=== PATIENT | male | born 1980 | race Caucasian/White ===

== ENCOUNTER 2021-07-10 20:49 | Emergency (ER) | payer OTHER, SELFPAY ==
--- NOTE | ~2021-07-10 | XR_ITS ---
XR wrist RT 2V DATE: 07/10/2021 21:17 INDICATION: Basketball injury TECHNIQUE: AP and lateral views COMPARISON: None FINDINGS: There is a comminuted intra-articular fracture of the distal radius with minimal dorsal dis placement. There is approximately 22 degrees apex anterior angulation. There is fracture of the ulnar styloid process. Normal alignment of the radiocarpal joint. IMPRESSION: Comminuted intra-articular fracture of the distal radius Fracture of ulnar styloid process Reviewed, dictated and finalized at location A.
[2021-07-10 20:53] VITALS: BP 119/83; PULSE 105; RESP 18; TEMP 37.1; O2SAT 97
--- NOTE | 2021-07-10 21:58 | ED.UPPEXIN ---
HPI - Extremity Injury (Upper) General Chief Complaint: Extremity Injury, Upper Stated Complaint: right arm injury Time Seen by Provider: 07/10/21 21:06 Source: patient Mode of arrival: ambulatory Limitations: no limitations History of Present Illness HPI narrative: Patient is a 41-year-old male complaining of right wrist pain after he fell on outstretched hand trying to reach for a basketball. Patient states that his pain is mild, tolerable and does not want anything for pain. Patient denies any other pain or injury. Related Data Home Medications Medication Instructions Recorded Confirmed No Home Medications 07/10/21 07/10/21 Allergies Allergy/AdvReac Type Severity Reaction Status Date / Time Sulfa (Sulfonamide Allergy Hives Verified 07/10/21 21:00 Antibiotics) Review of Systems Review of Systems: All systems reviewed & are unremarkable except as noted in HPI and below PMFSH Social History Social History Gender identity (if verbalized by the patient): Male Comments Past medical history: None Family history: Noncontributory Social history: Positive for smoker, positive for EtOH use, denies any drug use Exam Const: General: cooperative, healthy appearing, comfortable, no acute distress, well developed, alert and awake; No confusion Orientation/consciousness: oriented to person, oriented to place, oriented to time, patient oriented x3 and No confusion Limitations: no limitations HENMT: Head: normal to inspection, normocephalic and atraumatic Ears: hearing grossly normal bilaterally, TM normal on the right and TM normal on the left General nose exam: Normal external nose present, Normal nares present and No nasal discharge present Face and sinus: normal facial exam Mouth: Yes Normal oral and palatal mucosa present, Yes lip normal, Yes tongue normal and Yes oropharynx normal Throat: posterior oropharynx normal, tonsils normal and uvula midline Eyes: General: appearance normal, both eyes and all related structures Pupils: Equal, round and reactive pupils present EOM: EOMs intact bilaterally Neck: Neck: normal visual inspection, full ROM, no lymphadenopathy and no meningeal signs Chest: Chest palpation & inspection: normal inspection of the chest Resp: Effort & Inspection: normal respiratory effort, able to speak in complete sentences, no respiratory distress and not tachypneic Auscultation: clear to auscultation bilaterally, no crackles, no rales, no rhonchi and no wheezes Cardio: Rate: regular rate Rhythm: regular rhythm GI: Inspection: normal to inspection GI Palp: No abdominal tenderness, Yes Soft to palpation, No Tenderness to palpation present (GI), No Guarding due to palpation present (GI), No Rigid due to palpation and No Rebound tenderness present Auscultation: normal bowel sounds : General: Yes no CVA tenderness Back/Spine/Pelvis: Back: no CVA tenderness Skin: General skin exam: normal color, no rashes or lesions noted, elasticity normal and turgor normal Neuro: General: oriented to person, oriented to place, oriented to time, patient oriented x3, tone normal, moves all extremities, Normal light touch and pain sensation, no meningeal signs, no focal motor deficits, CN's II-XI intact bilaterally and No confusion Cranial nerves: Yes Equal, round and reactive pupils present Speech: No Abnormal speech present Sensory Exam: No Sensory deficit (Neuro) Extrem: General: capillary refill normal Other: Positive for right wrist deformity, swelling. Positive pain on palpation. Decreased range of motion due to pain. Neurovascular is intact Psych: Appearance: grossly normal and well kempt Mental Status: mental status grossly normal Speech and movement: Normal speech and movement present Affect: normal affect Attitude: cooperative Thought process: Normal thought process present Thought content: Yes Normal thought content present Insight: Good insight present (Psych) Judgement: Good judg
[2021-07-10] MEDS: TETANUS,DIPHTHERIA,AC PERTUSSIS ADULT (0.5 ML) BOOSTRIX IM (22:10)
[2021-07-10 23:36] VITALS: BP 119/68; PULSE 81; RESP 18; O2SAT 99
== END 2021-07-10 23:38 | disposition home or self-care (01) ==
PROVIDERS: Emergency Provider Emergency Medicine
DX: S52.501A Unspecified fracture of the lower end of right radius, initial encounter for closed fracture (principal); W01.0XXA Fall on same level from slipping, tripping and stumbling without subsequent striking against object, initial encounter; Z23 Encounter for immunization
CPT/HCPCS: 25605; 73100; 73110; 90471; 90715; 99285; A4565

== ENCOUNTER 2025-02-21 11:16 | Outpatient (CLI) | payer BC, SELFPAY ==
--- NOTE | ~2025-02-21 | US_ITS ---
Limited Abdominal Sonogram: Real-time sonographic imaging of the right upper quadrant was performed. Clinical History: Abnormal LFTs Findings: The liver appears mildly echogenic, with no evidence of mass lesion or bile duct dilatatio n. It measures 18.9 cm in length. Main portal vein demonstrates normal direction of flow. The gallbla dder is well distended, and appears normal with no evidence of gallstone or wall thickening. The comm on bile duct measures 6 mm. The visualized pancreas, aorta, and IVC are unremarkable. Impression: Probable mild fatty infiltration of liver with associated hepatomegaly. Reviewed, dictated and finalized at location M. Impression: Probable mild fatty infiltration of liver with associated hepatomegaly.
--- OUTSIDE RECORDS SUMMARY | 2025-02-21 13:19 | XMS_ITS | Clinical Summary ---
Author Organization [facility] [place] [address] [facility] Address [address] [place] [address] Care Team Providers Care Proofer Prepress Name Role Phone Nat Norris NP Primary Care Provider [phone] Allergies Active Allergy Reactions Criticality Noted Date Comments Penicillin Hives Medium 04/22/2023 Medications No known medications Active Problems Problem Noted Date Diagnosed Date BMI less than 19,adult 04/22/2023 Physical exam, annual 04/22/2023 BMI 20.0-20.9, adult 04/22/2023 Immunizations Immunization Administration Dates Next Due Hep A, Adult 08/04/2002 Influenza, Quadrivalent, Mae l Culture-based MDCK, Preservative Free, Antibiotic Free, Intramuscular 07/10/2022 Influenza, Unspecified 04/22/2023(Deferr ed: Patient Refused),12/18/2021(Deferred: Patient Refused) Tdap 07/10/2021 Family History Medical History Relation Name Comments No Known Problems Father No Known Problems Mother Diabetes Paternal Grandfather Relation Name Status Comments Father Alive Mother Alive Paternal Grandfather Social History Tobacco Use Types Packs/Day Years Used Date Smoking Tobacco: Every Day Cigarettes 1 20 Tobacco Cessation:Ready to Q uit: Not Asked; Counseling Given: Not Answered PHQ-2 Answer Date Recorded PHQ-2 Total Score (If total score is 3 or more points, staff should administer the PHQ-9) 0 04/22/2023 Personal Safety Answer Date Recorded Getting School Help Needed Not on file 01/16 Sex and Gender Information Value Date Recorded Sex Assigned at Not on file 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 Gender Identity Not on file Sexual Orientation Not on file Obstetrics History Last Filed Vital Signs Vital Sign Reading Time Taken Comments Blood Pressure 118/80 04/22/2023 1:30 PM CDT Pulse 87 04/22/2023 1:30 PM CDT Temperature 37.1 C (98.7 F) 04/22/2023 1:30 PM CDT Respiratory Rate - - Oxygen Saturation 97% 04/22/2023 1:30 PM CDT Inhaled Oxygen Concentration - - Weight 71.2 kg (157 lb) 04/22/2023 1:30 PM CDT Height 185.4 cm (6' 1 ) 04/22/2023 1:30 PM CDT Body Mass Index 20.71 04/22/2023 1:30 PM CDT Plan of Treatment Health Maintenance Due Date Last Done Comments Colon Cancer Screening-Colonoscopy 1979 Hepatitis C Screening 1979 Hepatitis B Screening 1997 Pneumococcal vaccine <65 (1 of 2 - PCV) 1998 Depression Screening 04/22/2024 04/22/2023 Regular Well Visit/Exam 18-64 04/22/2024 04/22/2023 Covid-19 Vaccine ( season) 2024 07/24/2022, 10/25/2021, 02/08/2021, Additional history exists Influenza Vaccine (#1) 2024 07/10/2022 DTaP/Tdap/Td Vaccine (2 - Td or Tdap) 07/10/2031 07/10/2021 HPV Vaccines Aged Out No longer eligi ble based on patient's age to complete this topic Insurance [employer] Care Teams Proofer Prepress Relationship Specialty Start Date End Date Nat Norris NP [address] [facility] [address] [place] [address] PCP - General Internal Medicine 04/22/23
--- OUTSIDE RECORDS SUMMARY | 2025-02-21 13:19 | XMS_ITS | Referral Summary ---
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
== END 2025-02-21 11:17 | disposition home or self-care (01) ==
PROVIDERS: Visit Provider Physician Assistant
DX: R74.01 Elevation of levels of liver transaminase levels (principal)
CPT/HCPCS: 76705

== ENCOUNTER 2025-06-21 12:31 | Outpatient (CLI) | payer OTHER, SELFPAY ==
--- NOTE | ~2025-06-21 | XR_ITS ---
EXAMINATION: XR UGIAC w small bowel DATE: 06/21/2025 14:28 INDICATION: Chronic nausea. Recent endoscopy/colonoscopy TECHNIQUE: The patient drank thick barium, gas-producing crystals, and thin barium. Conventional supi ne abdomen radiographs and fluoroscopic spot radiographs of the esophagus, stomach, and proximal smal l bowel were obtained. Additional overhead radiographs were obtained during the transit through the s mall bowel. Spot fluoroscopic images of the small bowel were obtained upon contrast reaching the cec um. A total of 367 fluoroscopic images and 5 overhead radiographs were recorded. Fluoroscopy exposure time was 2.4 minutes.. Total DAP was 668 Gycm^2. COMPARISON: None. FINDINGS: The esophagus is normal without mass or stricture. Esophageal motility is normal. There is no hiatal hernia. There was no gastroesophageal reflux with provocative maneuvers. The stomach and proximal sma ll bowel are normal. Transit time from the stomach to proximal colon was approximately 15 minutes. There is normal caliber and mucosal fold pattern throughout the small bowel. Terminal ileum is normal. No tethering or abn ormal mass effect observed upon the small bowel with real-time fluoroscopy. IMPRESSION: 1. Normal upper GI and small bowel follow-through study. Reviewed, dictated and finalized at location A.
--- OUTSIDE RECORDS SUMMARY | 2025-06-21 12:35 | XMS_ITS | Referral Summary ---
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
--- OUTSIDE RECORDS SUMMARY | 2025-06-21 12:35 | XMS_ITS | Clinical Summary ---
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
== END 2025-06-21 12:32 | disposition home or self-care (01) ==
LOC: ANHIMG 12:32
PROVIDERS: PCP Family Medicine
DX: R11.0 Nausea (principal)
CPT/HCPCS: 74246; 74248